=== PATIENT | male | born 1950 | race Caucasian/White ===

== ENCOUNTER 2023-02-08 05:31 | Inpatient (IN) ==
--- NOTE | 2023-01-31 09:18 | Anesthesiology Consultation ---
Date of Service January 31, 2023 Assessment & Plan (1) Encounter for pre-operative examination: Chart Review Chart Review: Acceptable Risk for Surgery and Patient NOT seen in Pre Admission Testing Medical clearance 01/22/23: "At present time his overall medical condition is stable for renal surgery. Is ok to hold xarelto before surgery per anticoag recommendations." Consults Requested none History Surgery Operation Date: 02/08/23 07:30 Proposed Procedures p Robotic Laparoscopic Assisted Partial Nephrectomy - Left - Brian Strauss MD Allergies Allergy/AdvReac Type Severity Reaction Status Date / Time lisinopril AdvReac Unknown Verified 01/30/23 13:42 Medications Home Medications Medication Instructions Recorded Confirmed Last Taken amlodipine 5 mg tablet 5 mg PO QAM 01/12/23 01/30/23 Unknown rivaroxaban 2.5 mg tablet (Xarelto) 2.5 mg PO QPM 01/12/23 01/30/23 Unknown rosuvastatin 40 mg tablet (Crestor) 40 mg PO QPM 01/12/23 01/30/23 Unknown allopurinol 300 mg tablet 150 mg PO QAM 01/30/23 01/30/23 Unknown atenolol 25 mg tablet 25 mg PO BID 01/30/23 01/30/23 Unknown budesonide-formoterol HFA 160 1 inh inhalation BID 01/30/23 01/30/23 Unknown mcg-4.5 mcg/actuation aerosol inhaler (Symbicort) triamterene 75 0.5 tab PO QAM 01/30/23 01/30/23 Unknown mg-hydrochlorothiazide 50 mg tablet Past Medical History Medical History (Updated 01/31/23 @ 09:11 by Olaf Steve MD) Atrial fibrillation follows with Dr Preciado COPD (chronic obstructive pulmonary disease) does not use his symbicort inhaler -- no issues. Encounter for pre-operative examination Enlarged prostate without lower urinary tract symptoms (luts) Gout History of cardioversion [facility] in [place], unsure of year "long time ago" - unsuccessful History of COVID-2019 mild symptoms. Hyperlipidemia Renal mass, left Past Family History Family History (Updated 01/30/23 @ 14:02 by Aster Gutierrez RN) Family/Other Heart disease Other No family history of adverse response to anesthesia Past Surgical History Surgical History History of cardiac cath ~11/2022 at [facility] - no stents. History of cardiac radiofrequency ablation [facility] in [place] with post op complication after "they nicked a vessel in the heart and the sac around my heart filled up with blood" was inp atient at ICU at [facility] ~. History of colonoscopy History of repair of rotator cuff right History of tonsillectomy Social History Smoking Status: Former smoker tobacco type: cigarettes Do You Dip or Chew Tobacco: No Smoking End Date: Hx Alcohol Use: Yes Alcohol type: beer alcohol intake frequency: 0-2 drinks per day Hx Substance Use: No substance use type: does not use Testing Laboratory Results 01/22/23 labs: INR 1.4. PT 17.6 K 3.9 Cl 101 CO2 28 Glucose 112. Creat 0.8. WBC 6.8, Hgb 15.2, Hct 44.9, plt 214 Electrocardiogram Date: 01/22/23 Findings: + AFIB @ (65) A fib. Abnormal ECG. No change found when compared to ECG Aug 2020 Chest X-Ray Date: 01/22/23 Possible mild fibronodular changes at right apex, otherwise unremarkable lungs. Echocardiogram Date: 07/12/22 EF 55-60% LV cavity size is normal Wall motion: all segments contract normally Mild AI
[2023-02-08] MEDS ORDERED: Patient's WEIGHT Needed SCH (06:00)
[2023-02-08] MEDS ORDERED: LR 15ML/HR IV SCH (06:00)
[2023-02-08] MEDS ORDERED: ceFAZolin 2000MG 2,000 MG/15 ML SYR IV SCH (06:00)
--- NOTE | 2023-02-08 07:05 | History & Physical Bridge Note ---
Date of Service February 08, 2023 History & Physical Bridge Note I have examined the patient, reviewed the History & Physical and in the interval since the performance of the History & Physical I have noted the following changes of clinical significance: no changes noted
[2023-02-08] MEDS ORDERED: fentaNYL citrate PF 100 MCG/2 ML VIAL ONE (07:08)
[2023-02-08] MEDS ORDERED: MIDAZOLAM HCL 1 MG/ML 2ML VIAL ONE (07:08)
[2023-02-08] MEDS ORDERED: LABETALOL HCL IV 5 MG/ML 20ML IV PRN (07:27)
[2023-02-08] MEDS ORDERED: ONDANSETRON INJ 2 MG/ML 2 ML VIAL IV PRN ×2 (07:27→14:40)
[2023-02-08] MEDS ORDERED: ePHEDrine sulfate 50 MG/ML AMP IV PRN (07:27)
[2023-02-08] MEDS ORDERED: ALBUTEROL 0.083% NEBU SOLN 3 ML VIAL INH PRN (07:27)
[2023-02-08] MEDS ORDERED: ATROPINE SULFATE 0.1 MG/ML 10ML SYR IV PRN (07:27)
[2023-02-08] MEDS ORDERED: fentaNYL citrate PF 100 MCG/2 ML VIAL IV PRN (07:27)
[2023-02-08] MEDS ORDERED: ACETAMINOPHEN 1,000 MG/100 ML VIAL IV STA (07:27)
[2023-02-08] MEDS ORDERED: GELATIN SPONGE SZ 100 ONE (07:49)
[2023-02-08] MEDS ORDERED: BUPIVACAINE 0.5 % 5 MG/1 ML MPF 30ML VIAL ONE (07:49)
[2023-02-08] MEDS ORDERED: HYDROmorphone INJ 2 MG/ML SYR/VIAL ONE (08:50)
[2023-02-08] MEDS ORDERED: PROPOFOL IV EMULSION 10 MG/ML 20 ML VIAL IV ONE ×3 (09:21→11:50)
[2023-02-08] MEDS ORDERED: ROCURONIUM BROMIDE 10 MG/ML 5 ML VIAL IV ONE (09:21)
[2023-02-08] MEDS ORDERED: ePHEDrine sulfate 50 MG/ML AMP ONE ×2 (09:23→12:06)
[2023-02-08] MEDS ORDERED: DEXAMETHASONE SOD INJ 4 MG/ML VIAL ONE (09:23)
[2023-02-08] MEDS ORDERED: SUCCINYLCHOLINE CHLORIDE 20 MG/ML 10 ML VIAL IV ONE (09:23)
[2023-02-08] MEDS ORDERED: LIDOCAINE 2% 2 ML VIAL/AMP(20MG/ML) INFIL ONE (09:23)
[2023-02-08] MEDS ORDERED: TISSEEL FIBRIN SEALANT 4ML TOP ONE (09:55)
[2023-02-08] MEDS ORDERED: SURGICEL ABSORB HEMOSTAT 2IN X 14IN TOP ONE (09:55)
[2023-02-08] MEDS ORDERED: ceFAZolin 2000MG 2,000 MG/15 ML SYR IV STA (11:35)
[2023-02-08] MEDS ORDERED: FLOSEAL HEMOSTATIC MATRIX 10ML TOP ONE (11:38)
--- NOTE | 2023-02-08 12:33 | Operative Report ---
PG Post Operative Report Pre & Post Diagnosis Operation Date: 02/08/23 07:30 Pre-Op Diagnosis: Left Renal Mass Post-Op Diagnosis: Left Renal Mass I identified the patient and participated in the time-out.: Yes Procedure Operation Date: 02/08/23 07:30 Actual Procedures p Robotic Laparoscopic Assisted Partial Nephrectomy - Left(Left) - Brian Strauss MD Surgeon Brian Strauss MD Employment Evaluator/Case Manager Imelda MOODY, Robles Roa DO Estimated Blood Loss 25 Findings Consistent with Post-Op Diagnosis Specimens Left renal mass Drains Cespedes catheter per urethra Anesthesia Type General Complications none Disposition Accompanied Patient To Recovery: Yes Disposition: Recovery Room Indications This is a 72-year-old male recently seen in the urology office with a left renal mass. He presents to the OR today for left robot-assisted laparoscopic partial nephrectomy. Description of Procedure The patient was identified and informed consent was obtained. He was marked on the left side and was brought to the operating room where general anesthesia was initiated. He was placed in a flank position with the left side elevated. All pressure points were carefully padded. A timeout was then performed. A surgical marker was used to draw a line approximately 7 cm to the left of the umbilicus, in the mid clavicular area. Anticipated port sites were marked starting approximately 2 fingerbreadths below the costal margin. Subsequent ports were anticipated to be 6 to 7 cm spaced down this line. An incision was made at the second anticipated site, then dissection was carried down to the fascia. A Veress needle was used to obtain access to the peritoneum. Good position was confirmed with a negative aspiration, appropriate drop test and low opening insufflation pressure. The abdomen was then inflated with CO2 to 15 mmHg. The first robotic port was then placed and the camera was inserted. The abdominal cavity was surveyed. There were no significant adhesions. There is no injury to intra-abdominal organs. The remaining 3 robotic ports were placed under direct visualization. A 12 mm social research assistant port was then placed in the midline above the umbilicus. The robot was then docked. I reflected the colon along the white line of Toldt to expose Gerota's fascia. Once the colon was sufficiently reflected, the gonadal vessels and left ureter were identified. These were then dissected cephalad to identify the renal hilum. He had 1 renal artery and 1 renal vein, there appeared to be a branch to the lumbar veins as well. Adequate windows were dissected to facilitate placement of bulldog clamps on both vessels. I then turned my attention toward the renal mass. This was on the upper ant erior pole of the left kidney and I was able to see us subtle bulge in the Gerota's fascia. Gerota's fascia was incised and the fat was dissected away to expose the renal mass and capsule. The intraoperative ultrasound was then introduced and used to survey this area of the kidney. The mass appeared to be approximately 2.5 cm in diameter. It did not appear to clearly invade the collecting system. The bulldog clamps were then applied to the renal artery and the renal vein. There was good blanching of the kidney. The renal mass was sharply excised leaving a margin of normal-appearing kidney tissue around the mass itself. Any point bleeding vessels were cauterized. Once the mass was free from the kidney, renorrhaphy was performed using a 2 layer approach. A 2-0 V-Loc suture was plac ed in the deep portion of the kidney defect and secured using Hem-o-danyelle clips on both sides. The renal capsule was then reapproximated using interrupted 2-0 V- Loc sutures also secured with Hem-o-loks and Lapra-Ty's. There was good hemostasis at this point. The bulldog clips were then removed. There was a little bit of bleeding from the renorrhaphy which was controlled with an additional V-Loc suture placement and tightening of the Hem-o-locks. Total warm ischemia time was 15 minutes. A layer of Surgicel, Floseal and Tisseel were applied to the resection area and the hilum. The renal mass was placed in a specimen bag. Final survey of the abdomen revealed good hemostasis and no injury to intra-abdominal contents. The robot was dedocked. The specimen was extracted through the social research assistant port in the midline and was sent for analysis labeled as left renal mass. The incisions were then closed. The extraction site was closed using a deep 0 Vicryl running suture for the fascia. All wounds were anesthetized using 0.5% Marcaine. Skin was closed using running subcuticular 4-0 Monocryl for the extraction site and buried interrupted 4-0 Monocryls for the robot sites. The patient was then awakened from anesthesia and brought to the PACU in stable condition. All sponge and instrument counts were correct at the end of the case. Of note, HEIDY Courtney, acted as bedside social research assistant for the majority of the case, helping with initial positioning, access, retraction, dissection and with closing. Robles Roa DO, acted as bedside social research assistant for the mass excision and renorrhaphy. I attest to the content of the Intraoperative Record and any orders documented therein. Any exceptions are noted below.
[2023-02-08] MEDS ORDERED: ACETAMINOPHEN 1000 MG/100 ML IV IV ONE (13:14)
[2023-02-08 13:32] LABS: Basophils # (auto) 0.02 K/uL (0-0.2); Basophils % (auto) 0.2 %; Hematocrit (blood only) 41.8 % (42.0-52.0); Immature Granulocytes # (auto) 0.04 K/uL (0.01-0.20); Immature Granulocytes % (auto) 0.4 %; Lymphocytes # (auto) 0.88 K/uL (1.2-3.4); Lymphocytes % (auto) 8.6 %; Mean Corpuscular Hemoglobin 31.2 pg (25.0-34.0); Mean Corpuscular Hgb Conc 35.9 g/dL (32.0-36.0); Mean Corpuscular Volume 86.9 fL (80.0-100.0); Mean Platelet Volume 9.5 fL (9.4-12.4); Monocytes # (auto) 0.22 K/uL (0.11-0.59); Monocytes % (auto) 2.1 %; Neutrophils # (auto) 9.09 K/uL (1.40-6.50); Neutrophils % (auto) 88.7 %; Platelet Count 216 K/uL (130-400); RDW Coefficient of Variation 12.3 % (11.5-14.5); RDW Standard Deviation 39.3 fL (36.4-46.3); Red Blood Count 4.81 M/uL (4.70-6.10); White Blood Count 10.25 K/ul (4.8-10.8)
--- NOTE | 2023-02-08 13:49 | Anesthesiology Progress Note ---
Date of Service February 08, 2023 Anesthesia Post Procedure Vital Signs Vital Signs: Temp Pulse Pulse Resp BP Pulse Ox O2 Del Method 02/08/23 13:30 94 H 20 150/89 H 96 Nasal Cannula 02/08/23 12:50 95 H 20 146/77 H 96 Nasal Cannula 02/08/23 13:20 95 H 18 154/82 H 96 Nasal Cannula 02/08/23 13:10 87 15 150/96 H 95 Nasal Cannula 02/08/23 13:00 92 H 16 152/93 H 96 Nasal Cannula 02/08/23 12:40 97 H 24 155/97 H 95 Nasal Cannula 02/08/23 12:34 36.2 C L 89 20 158/82 H 95 Nasal Cannula 02/08/23 05:53 37 C 81 18 162/78 H 95 Room Air O2 Flow Rate 02/08/23 13:30 3 02/08/23 12:50 3 02/08/23 13:20 3 02/08/23 13:10 3 02/08/23 13:00 3 02/08/23 12:40 3 02/08/23 12:34 3 02/08/23 05:53 Transfer of Care Handoff Completed per policy Notes Mental Status: alert / awake / arousable Patient Amnestic to Procedure: Yes Nausea / Vomiting: adequately controlled Pain: adequately controlled Airway Patency, RR, SpO2: stable & adequate BP & HR: stable & adequate Hydration State: stable & adequate Anesthetic Complications: no major complications apparent and Pt Satisfied with anesthetic care
[2023-02-08 13:58] LABS: BUN Creatinine Ratio 9.7 (10-20); Creatinine Clr Calc Pharmacy 74.9 ml/min; Est GFR (African American) 83.1 ml/min; Est GFR (Non-African American) 71.7 ml/min; Potassium 3.2 mmol/L (3.5-5.1)
[2023-02-08] MEDS ORDERED: oxyCODONE HCL IR 5 MG TAB (IMMEDIATE RELEASE) PO PRN ×2 (14:40)
[2023-02-08] MEDS ORDERED: IBUPROFEN 200 MG TAB PO PRN (14:40)
[2023-02-08] MEDS ORDERED: MoRPHine SULFATE 2 MG/ML CARP IV PRN (14:40)
[2023-02-08] MEDS ORDERED: POLYETHYLENE (MIRALAX) 17 GM PACK PO PRN (14:40)
[2023-02-08] MEDS ORDERED: MoRPHine SULFATE 4 MG/ML 1 ML CARP\\VIAL IV PRN (14:40)
[2023-02-08] MEDS: LACTATED RINGER'S 1,000 ML IV SCH (14:52)
[2023-02-08] MEDS: ceFAZolin 2000MG 2,000 MG/15 ML SYR IV SCH ×2 (15:40→23:04)
[2023-02-08] MEDS: ACETAMINOPHEN 325 MG TAB PO SCH ×2 (17:57→23:05)
[2023-02-08] MEDS: ATENOLOL 25 MG TABLET PO SCH (20:24)
[2023-02-08] MEDS: HEPARIN SOD 5,000 UNIT/0.5 ML VIAL SQ SCH (20:24)
[2023-02-08] MEDS: DOCUSATE SODIUM 100 MG CAP PO SCH (20:25)
[2023-02-08] MEDS ORDERED: ROSUVASTATIN CALCIUM 20 MG TAB PO SCH (21:00)
[2023-02-09] MEDS: LACTATED RINGER'S 1,000 ML IV SCH (00:43)
[2023-02-09] MEDS: ACETAMINOPHEN 325 MG TAB PO SCH ×2 (05:22→13:10)
[2023-02-09 08:36] LABS: BUN Creatinine Ratio 10.7 (10-20); Calcium 8.8 mg/dl (8.6-10.3); Creatinine Clr Calc Pharmacy 68.9 ml/min; Est GFR (African American) 75.1 ml/min; Est GFR (Non-African American) 64.8 ml/min; Potassium 3.6 mmol/L (3.5-5.1)
--- NOTE | 2023-02-09 08:44 | Urology Progress Note ---
I have discussed Mr. Rose's case with HEIDY Courtney and agree with the above documentation. Tolerating a diet, pain is controlled he is going to ambulate this morning. Should be good for discharge home. We will arrange outpatient follow-up. -Brian Strauss MD. Date of Service February 09, 2023 Assessment & Plan (1) Renal mass, left: Plan: - Patient POD#1 s/p left partial nephrectomy for 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 - Doing well, progressing as expected - Afebrile, post op lab work reviewed - creatinine 1.12, WBC 10.25 and Hgb 15.0 (02/08 post op) - Minimal pain - Tolerating regular diet - will d/c IV fluids - Encouraged OOB ambulation - Incisions appropriate - Cespedes catheter patent and draining yellow urine - Discontinue Cespedes catheter this morning, monitor for void - Expected clinical course reviewed, all questions answered - Anticipate discharge to home later today if he continues to progress as expected - Will arrange outpatient follow-ups Admission and Anticipated Discharge Date Admission Date: February 08, 2023 Subjective Patient seen and examined at bedside this morning. He is awake, alert and resting in bed. No acute issues overnight. Reports mild discomfort near incisions. Tolerating regular diet. No nausea or vomiting. He has ambulated. No fever or chills. Cespedes patent draining yellow urine. Review of Systems Constitutional: as per Subjective / HPI Gastrointestinal: as per Subjective / HPI Genitourinary: + as per Subjective / HPI Physical Exam Constitutional: well developed and well nourished; no acute distress Respiratory: normal respiratory effort; no respiratory distress and no labored breathing Cardiovascular: Rate/Rhythm: regular rate Extremities: no pedal edema Gastrointestinal (Abdomen): Inspection/Auscultation: abdomen normal to inspection; abdomen not distended Percussion/Palpation: abdomen soft; abdomen nontender and no guarding Skin: Surgical incisions well approximated with dermabond, C/D/I Psychiatric: Orientation: alert and oriented x 3 Genitourinary: Cespedes patent and draining clear yellow urine Results & Data Vital Signs (Past 12 Hours) Vital Signs Temp Pulse Resp BP Pulse Ox O2 Del Method O2 Flow Rate 02/09/23 07:17 36.7 C 75 16 135/57 L 92 Nasal Cannula 1 02/09/23 03:04 36.7 C 81 18 149/68 H 93 Nasal Cannula 1.5 02/08/23 22:41 36.7 C 81 18 138/84 95 Nasal Cannula 1.5 PG Care Time/CCT Total # of Minutes Spent Total Time Spent with Patient: Total time spent is greater than 50% in coordination of care (as documented) at patient's floor/unit and/or counseling patient: Coding Level of Care Code None Diagnoses Renal mass, left N28.89
[2023-02-09] MEDS ORDERED: FLUTICASONE/VILANTEROL 100/25MCG 14 PUFFS/INHALER INH SCH (09:00)
[2023-02-09] MEDS ORDERED: TRIAMTERENE/HCTZ 37.5/25MG TAB PO SCH (09:00)
[2023-02-09] MEDS ORDERED: amLODIPine BESYLATE 5 MG TAB PO SCH (09:00)
[2023-02-09] MEDS ORDERED: allopurinoL 300 MG TAB PO SCH (09:00)
[2023-02-09] MEDS: ATENOLOL 25 MG TABLET PO SCH (09:15)
[2023-02-09] MEDS: HEPARIN SOD 5,000 UNIT/0.5 ML VIAL SQ SCH (09:15)
[2023-02-09] MEDS: DOCUSATE SODIUM 100 MG CAP PO SCH (09:15)
[2023-02-09 10:14] LABS: Basophils # (auto) 0.01 K/uL (0-0.2); Basophils % (auto) 0.1 %; Hematocrit (blood only) 39.2 % (42.0-52.0); Hemoglobin 13.2 g/dl (14.0-18.0); Immature Granulocytes # (auto) 0.04 K/uL (0.01-0.20); Immature Granulocytes % (auto) 0.4 %; Lymphocytes # (auto) 1.05 K/uL (1.2-3.4); Lymphocytes % (auto) 9.6 %; Mean Corpuscular Hemoglobin 30.8 pg (25.0-34.0); Mean Corpuscular Hgb Conc 33.7 g/dL (32.0-36.0); Mean Corpuscular Volume 91.6 fL (80.0-100.0); Mean Platelet Volume 9.5 fL (9.4-12.4); Monocytes # (auto) 0.81 K/uL (0.11-0.59); Monocytes % (auto) 7.4 %; Neutrophils # (auto) 8.98 K/uL (1.40-6.50); Neutrophils % (auto) 82.5 %; Platelet Count 183 K/uL (130-400); RDW Coefficient of Variation 12.9 % (11.5-14.5); RDW Standard Deviation 42.4 fL (36.4-46.3); Red Blood Count 4.28 M/uL (4.70-6.10); White Blood Count 10.89 K/ul (4.8-10.8)
--- NOTE | 2023-02-09 13:51 | Discharge Summary ---
Date of Service February 09, 2023 Admission HPI Per Admitting Provider Patient with left renal mass here for robot assisted left partial nephrectomy. Admission Exam Per Admitting Provider Constitutional well developed and well nourished; no acute distress Eyes + anicteric sclerae; pupils not irregular Respiratory normal respiratory effort; no respiratory distress, does not use accessory muscles and no cough Cardiovascular well perfused Gastrointestinal (Abdomen) Inspection/Auscultation: abdomen normal to inspection; abdomen not distended Musculoskeletal Extremities: extremities normal to inspection Skin normal turgor; no rashes and no lesions Neurologic moves all extremities and awake Psychiatric Orientation: alert and oriented x 3 Principal Diagnosis Left renal mass Discharge Exam Constitutional well developed and well nourished; no acute distress Respiratory normal respiratory effort; no respiratory distress and no labored breathing Cardiovascular Rate/Rhythm: regular rate Extremities: no pedal edema Gastrointestinal (Abdomen) Inspection/Auscultation: abdomen normal to inspection; abdomen not distended Percussion/Palpation: abdomen soft; abdomen nontender and no guarding Skin Surgical incisions are well approximated with dermabond, C/D/I Psychiatric Orientation: alert and oriented x 3 Discharge Data Allergies Allergy/AdvReac Type Severity Reaction Status Date / Time lisinopril AdvReac Unknown Verified 02/08/23 05:51 Procedures Performed Operation Date: 02/08/23 07:30 Actual Procedures p Robotic Laparoscopic Assisted Partial Nephrectomy - Left(Left) - Brian Strauss MD Hospital Course (1) Renal mass, left: - Patient POD#1 s/p left partial nephrectomy for 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 - Doing well, progressing as expected - Afebrile, post op lab work reviewed - creatinine 1.12, WBC 10.25 and Hgb 15.0 (02/08 post op) - Minimal pain - Tolerating regular diet - will d/c IV fluids - Encouraged OOB ambulation - Incisions appropriate - Cespedes catheter patent and draining yellow urine - Discontinue Cespedes catheter this morning, monitor for void - Expected clinical course reviewed, all questions answered - Anticipate discharge to home later today if he continues to progress as expected - Will arrange outpatient follow-ups Total Time Total Time Spent Total Time Spent (In Minutes): 29 Discharge Plan Discharge Items Patient Disposition: Home - Self-Care Reason For Visit: Left Renal Mass Discharge Diagnosis: Left renal mass Activity: Per Instructions section Lifting: No more than 10 pounds Bathing Comment: Okay to shower after discharge Sexual Activity: Wait until after follow-up appointment Exercise/Sports: Wait until after follow-up appointment Driving/Machine Use: No driving while taking prescription pain medication Non-emergency contact: Surgeon and Urologist Call non-emergency contact if: your pain is not controlled, your pain is worsening, your temperature is above 101, your wound has increased redness and your wound has increased drainage Follow-up/Referrals: Brian Strauss MD [Physician] - 02/15/23 9:00 am () Allen Ge PA-C [Primary Care Provider] - Diet: Regular Addtl Attending Provider Instructions: The surgery you had was: Robot-assisted left partial nephrectomy Please take all medications as prescribed and keep all follow-ups as scheduled. Please call our office at [phone] with any questions, concerns or need to reschedule appointments for any reason. We are happy to assist you. Medications: Take Tylenol every 6 hours for baseline pain control If you are prescribed narcotics such as oxycodone, please take it according to the instructions on the label. Activity/Recovering at home: We recommend having someone with you for the first few days after surgery to help care for you. It is okay to shower tomorrow. Please avoid swimming, bathing or using hot tub until incisions are well healed. Avoid driving until you are not requiring pain medication any further. Walk at least a few times a day. Increase your distance, as you feel able. Stairs in your home are okay. Please avoid strenuous or sexual activity until your follow-up. No lifting anything more than 10 pounds for 6 to 8 weeks Use a stool softener (i.e. Colace) to prevent constipation, especially the first two weeks post operatively. You should not be straining/pushing to have a bowel movement. Follow-up: We will have you come to the urology office in 1-2 weeks for a wound check and pathology review. Call [facility] Urology at [phone] if you experience: Chest pain or trouble breathing (call 281 or go to the hospital). Fever of 101F or higher Symptoms of infection at incision site, including redness or swelling, warmth, or bad-smelling drainage Pain that is not controlled with medicines Pending Studies at Discharge: Yes (surgical pathology) Stand-Alone Forms: My [facility] Medications and DC Order Prescriptions: Continued rosuvastatin [Crestor] 40 mg tablet 40 mg PO QPM amlodipine 5 mg tablet 5 mg PO QAM Xarelto 2.5 mg tablet 2.5 mg PO QPM atenolol 25 mg Tablet 25 mg PO BID allopurinol 300 mg Tablet 150 mg PO QAM triamterene-hydrochlorothiazid 75-50 mg Tablet 0.5 tab PO QAM budesonide-formoterol [Symbicort] 160-4.5 mcg/actuation Hfa Aerosol Inhaler 1 inh INHALATION BID Discharge Orders: Discharge Order (Routine); Ordered 02/09/23 Ordered By: Imelda Sal Admission Data Admit Date/Time: 02/08/23 14:11 Attending Provider: Brian Strauss Admit Provider: Brian Strauss Primary Care Provider: Allen Ge Other Providers: [facility] Other Interventions: Discharge Summary Assessment (RN) Last Done: 02/09/23 13:07 Coding Level of Care Code 79468 IN/OBS DISCH 30 MIN/LESS Diagnoses Renal mass, left N28.89 Time Spent (min) 29
== END 2023-02-09 13:30 | disposition home or self-care (01) | DRG 658 ==
LOC: ASU 05:31 → 3N 14:11